=== PATIENT | female | born 1990 | race Caucasian/White ===

== ENCOUNTER 2017-09-16 03:47 | Inpatient (IN) | payer OTHER ==
[2017-09-16 04:49] VITALS: BMI 27.1
[2017-09-16] MEDS ORDERED: Lactated Ringer's 1,000 ML IV SCH (05:00)
--- NOTE | 2017-09-16 05:06 | OBHP ---
Datetime: 09/16/2017 04:56 IP Adm Impression: Term, intrauterine ; Ruptured Membranes IP Admit Plan: Admit to unit; Initiate labor induction protocol Admit Comment, IP Provider: [id number])@ 38 2/ presents to the L_D with complaints of fluid rupture sinc e 2am. Denies CTX or vaginal bleeding. POBHx: none PMHx: none PSHx None Meds: none All: NKDA Social Hx: negative x 3 ROS: negative. SVE: 05/24/-2 Labs: nitrazine + A/P: 25 @ 38 2/ with premature rupture of membranes. 1) Admit to L_D 2) GBS +. start clindamycin. 3) induction: cytotec 50mg PO Q6hrs. 4) Plan d/w Dr. Still Pelvic Type - PN: Adequate Extremities - PN: Normal Abdomen - PN: Normal Back - PN: Normal Breast - PN: Normal Lungs - PN: Normal Heart - PN: Normal Thyroid - PN: Normal Neurologic - PN: Normal HEENT - PN: Normal General - PN: Normal Weight - Estimated: 6lbs FHR - Baseline A Provider: 140s Membranes, Provider: Ruptured Contraction Comments Provider: irregular Comments, ACOG Physical Exam: Vaginal exam: +grossly ruptured, +nitrazine. SVE: 05/24/-2 Gestation - Est Wks by US: 38 2/7 Pool Provider: Positive Nitrazine Provider: Positive IP Hx Assessment: The History has been Reviewed and is Current EGA AdmitDate IP: 38.2 Vital Signs Provider: Reviewed IP Indication for Induction: PROM IP Chief Complaint: Suspected ruptured membranes NICHD Variability Prov Fetus A: moderate NICHD Accel Fetus A IP Provider: 15X15 FHR Category Provider Fetus A: Category I NICHD Decel Fetus A IP Provider: None Dilatation, Provider: 1 Effacement, Provider: 30 Station, Provider: -2 Genitourinary Exam: Normal DTRs - PN: Normal
[2017-09-16 05:25] LABS: BASO % 0.3 % (0.0-2.0); EOS % 0.2 % (0.0-4.0); HEMOGLOBIN 10.6 g/dL (11.0-16.0); LYMPH # 2.5 K/uL (1.0-4.3); LYMPH % 31.3 % (20.0-40.0); MEAN CELL VOLUME 71.6 fL (81.0-99.0); MEAN CORPUSCULAR HEMOGLOBIN 23.3 pg (27.0-31.0); MEAN CORPUSCULAR HGB CONC 32.6 g/dL (33.0-37.0); MEAN PLATELET VOLUME 9.6 fL (7.2-11.7); MONO # 0.4 K/uL (0.0-0.8); MONO % 5.5 % (0.0-10.0); NEUT % 62.7 % (50.0-75.0); NRBC % 0.1 % (0.0-2.0); RBC 4.55 Mil/uL (3.80-5.20)
[2017-09-16 06:02] LABS: ALB/GLOB RATIO 0.9 (1.0-2.1); ALBUMIN 3.4 g/dL (3.5-5.0); ALT/SGPT 8 U/L (9-52); AST/SGOT 30 U/L (14-36); BLOOD UREA NITROGEN 8 mg/dL (7-17); CALCIUM 9.2 mg/dl (8.6-10.4); GFR AFRICAN-AMERICAN > 60; GFR NON-AFRICAN AMERICAN > 60
--- NOTE | 2017-09-16 07:21 | OBADHP ---
Datetime: 09/16/2017 04:56 EGA AdmitDate IP: 38.2
--- NOTE | 2017-09-16 07:23 | OBPN ---
Datetime: 09/16/2017 07:21 IP Progress Impression: Normal progression of labor IP Procedures: Sterile Vag Exam FHR - Baseline A Provider: 130 IP Progress Note Comment: pt was examind at bed side ve 2/60/-2 strt ptocin cobt abxs nicipate NICHD Accel Fetus A IP Provider: 15X15 FHR Category Provider Fetus A: Category I NICHD Variability Prov Fetus A: Moderate 6-25bpm Dilatation, Provider: 2 Effacement, Provider: 60 Station, Provider: -2 Datetime: 09/16/2017 04:56 Pool Provider: Positive Nitrazine Provider: Positive Membranes, Provider: Ruptured Contraction Comments Provider: irregular Gestation - Est Wks by US: 38 2/7 Weight - Estimated: 6lbs Vital Signs Provider: Reviewed NICHD Decel Fetus A IP Provider: None
[2017-09-16] MEDS ORDERED: Oxytocin 30 UNIT 30 UNITS/500 ML BAG IV ONE (07:24)
[2017-09-16] MEDS ORDERED: Oxytocin 30 UNIT 30 UNITS/500 ML BAG IV SCH (07:30)
[2017-09-16 07:33] LABS: SQUAMOUS EPITHIAL 2 /hpf (0-5); URINE BACTERIA RARE (<OCC); URINE BILIRUBIN NEGATIVE (NEGATIVE); URINE BLOOD 1+ (NEGATIVE); URINE CLARITY Hazy (Clear); URINE COLOR Straw (YELLOW); URINE GLUCOSE (UA) NORMAL (Normal); URINE LEUKOCYTE ESTERASE NEG Leu/uL (Negative); URINE PROTEIN NEGATIVE (NEGATIVE); URINE UROBILINOGEN NORMAL mg/dL (0.2-1.0)
[2017-09-16] MEDS ORDERED: Fentanyl/Bupivacaine HCl 250 ML EPI ONE (11:25)
--- NOTE | 2017-09-16 16:26 | OBPN ---
Datetime: 09/16/2017 16:23 IP Progress Impression: Normal progression of labor IP Procedures: Sterile Vag Exam Contraction Comments Provider: q1-3 FHR - Baseline A Provider: 130 IP Progress Note Comment: pt was examined at bed side ve f/100/0 joel start pushing NICHD Accel Fetus A IP Provider: 15X15 FHR Category Provider Fetus A: Category I NICHD Variability Prov Fetus A: Moderate 6-25bpm Dilatation, Provider: 10 Effacement, Provider: 100 Station, Provider: 0
[2017-09-16] MEDS ORDERED: Tdap Vaccine 0.5 ml Vial (10-64 yrs) IM ONE (16:28)
--- NOTE | 2017-09-16 16:28 | OBDS ---
DELIVERY PERSONNEL Delivery Doctor: Kris Still MD Anesthesiologist: juvencio MATERNAL INFORMATION Delivery Anesthesia: Epidural Provider Comments: dr Still private pateint baby deiverd n fady . end clean rml repaired no com LABOR SUMMARY EDC: 09/28/2017 00:00 No. Babies in Womb: 1 Attempted: No Labor Anesthesia: Epidural LABOR INFORMATION Onset of Labor: 09/16/2017 10:00 Cervical Ripening Agents: Cytotec @ (Annotations: 50 MCG GIVEN PO) Oxytocin: Augmentation Group B Beta Strep: Positive Steroids Given: None Reason Steroids Not Administered: Not Applicable MEMBRANES Membranes Rupture Method: Spontaneous Rupture of Membranes: 09/16/2017 02:00 Length of Rupture (hrs): 14.17 Amniotic Fluid Color: Clear Amniotic Fluid Amount: Large Amniotic Fluid Odor: Normal STAGES OF LABOR Stage 3 hrs: 0 Stage 3 min: 5 Total Time in Labor hrs: 6 Total Time in Labor min: 15 VAGINAL DELIVERY Episiotomy: Right Mediolateral Laceration Extension: N/A Laceration Type: Perineal Laceration Repair Note: repaired 3 chromic BABY A INFORMATION Infant Delivery Date/Time: 09/16/2017 16:10 Method of Delivery: Vaginal Born in Route : No : N/A Forceps: N/A Vacuum Extraction: N/A Shoulder Dystocia : No SHOULDER DYSTOCIA BABY A Delivery Date/Time: 09/16/2017 16:10 PRESENTATION/POSITION BABY A Presentation: Cephalic Cephalic Presentation: Vertex Vertex Position: Right Occipital Anterior Breech Presentation: N/A PLACENTA INFORMATION BABY A Placenta Delivery Time : 09/16/2017 16:15 Placenta Method of Delivery: Spontaneous Placenta Status: Delivered SCORES BABY A Heart Rate 1 min: >100 bpm Resp Effort 1 min: Good Cry Reflex Irritability 1 min: Cough or Sneeze or Pulls Away Muscle Tone 1 min: Active Motion Color 1 min: Body [place], Extremities Blue Resuscitation Effort 1 min: Tactile Stimulation SCORE 1 MIN: 9 Heart Rate 5 min: >100 bpm Resp Effort 5 min: Good Cry Reflex Irritability 5 min: Cough or Sneeze or Pulls Away Muscle Tone 5 min: Active Motion Color 5 min: Body [place], Extremities Blue SCORE 5 MIN: 9 INFORMATION BABY A Gestational Age at Delivery: 38.2 Gestational Status: Term Infant Outcome : Liveborn Condition : Stable Infant Sex: Female IDENTIFICATION/MEDS BABY A ID Band Number: [id number] ID Band Location: Left Leg; Left Arm Sensor Applied: Yes Sensor Number: [id number] Sensor Location : Cord Clamp WEIGHT/LENGTH BABY A Birthweight (gms): 2525 Infant Weight (lb): 5 Weight (oz): 9 Length Inches: 18.00 Length cms: 45.7 CORD INFORMATION BABY A No. Cord Vessels: 3 Nuchal Cord : N/A Cord Blood Taken: Yes Infant Suction: Mouth; Nose ASSESSMENT BABY A Complications: None Physical Findings at Delivery: Within Normal Limits Infant Respirations: Appears Normal Nutritional Chemist/ALS Called : No Care By: CARI Transferred To: Nursery
[2017-09-16] MEDS ORDERED: Oxycodone/Acetaminophen 5/325 mg Tab PO PRN ×2 (16:33)
[2017-09-17] MEDS: Benzocaine/Menthol 20%-0.5% Topical Spray (60 ml) TOP SCH ×2 (00:11→05:39)
--- NOTE | 2017-09-17 08:08 | OBPPN ---
Datetime: 09/17/2017 08:03 PP Pain Prov: Within normal limits PP Nausea Prov: Denies PP Flatus Prov: Yes PP Breasts Prov: Normal PP Heart Prov: Normal PP Lungs Prov: Normal PP Abdomen/Uterus Prov: Normal PP Lochia Prov: Normal PP Vulva/Perineum Prov: Normal PP CVA Tenderness Prov: Normal PP Extremities Prov: Normal PP Progress Prov: Normal PP Impression Prov: Normal progression PP Plan Prov: Continue present management PP Progress Note Prov: pt doing well. No compalints. Tolerating PO diet. Lochia minimal. +flatus, de nies BM. PE: fundus firm, ext: no edema s/p PPD#1 1) VSS; afebrile. 2) encouraged ambulation. 3) Routine PP care. IP PP Procedures: None Vital Signs Provider PP: Reviewed
[2017-09-17 08:42] LABS: BASO % 0.2 % (0.0-2.0); EOS % 0.2 % (0.0-4.0); HEMOGLOBIN 9.6 g/dL (11.0-16.0); LYMPH # 2.6 K/uL (1.0-4.3); LYMPH % 20.6 % (20.0-40.0); MEAN CELL VOLUME 71.8 fL (81.0-99.0); MEAN CORPUSCULAR HEMOGLOBIN 23.5 pg (27.0-31.0); MEAN CORPUSCULAR HGB CONC 32.8 g/dL (33.0-37.0); MEAN PLATELET VOLUME 9.8 fL (7.2-11.7); MONO # 0.6 K/uL (0.0-0.8); MONO % 4.9 % (0.0-10.0); NEUT # 9.3 K/uL (1.8-7.0); NEUT % 74.1 % (50.0-75.0); NRBC % 0.1 % (0.0-2.0); RBC 4.09 Mil/uL (3.80-5.20); RED CELL DISTRIBUTION WIDTH 19.4 % (11.5-14.5); WHITE BLOOD COUNT 12.6 K/uL (4.8-10.8)
[2017-09-17] MEDS: Prenatal Multivit/Folic Acid/Iron Tab PO SCH (09:19)
[2017-09-18 07:43] VITALS: BP 109/75
--- NOTE | 2017-09-18 09:57 | OBDCSUM ---
Datetime: 09/18/2017 09:53 Discharged to, Provider: Home Follow up at, Provider: 6 weeks PP Disch Instr Activity: Normal activity Disch Instr Diet: Regular Discharge Instructions, Provider: Routine instructions given Discharge Diagnosis, Provider: Term Delivered Discharge Time: 09/18/2017 09:54 Disch Referrals: None Contraception discussed, Prov: Yes Disch Activity Restrictions: No exercising; No lifting; No driving Discharge Comment, Provider: PT doing well. Currently no complaints at this time. Tolerating PO diet , ambulating, passing flatus, +BM Pt is 25 S/P PPD#1.
[2017-09-18] MEDS: Prenatal Multivit/Folic Acid/Iron Tab PO SCH (10:06)
[2017-09-18] MEDS ORDERED: Tdap Vaccine 0.5 ml Vial (10-64 yrs) IM ONE (10:15)
[2017-09-18 17:06] VITALS: PULSE 82; RESP 18; TEMP 97.4; O2SAT 99
== END 2017-09-18 12:20 | disposition home or self-care (01) | DRG 372 ==
LOC: C.EROB 03:47 → C.4D 04:46 → C.4M 17:55
PROVIDERS: ADMIT Obstetrics & Gynecology; ATTEND Obstetrics & Gynecology
PROC: 10E0XZZ Delivery of Products of Conception, External Approach (ICD-10-PCS; principal; 2017-09-16)
PROC: 0W8NXZZ Division of Female Perineum, External Approach (ICD-10-PCS; 2017-09-16)
PROC: 3E0P7VZ Introduction of Hormone into Female Reproductive, Via Natural or Artificial Opening (ICD-10-PCS; 2017-09-16)
DX: O42.02 Full-term premature rupture of membranes, onset of labor within 24 hours of rupture (principal); O99.824 Streptococcus B carrier state complicating childbirth; Z3A.38 38 weeks gestation of pregnancy; Z37.0 Single live birth